=== PATIENT | female | born 1990 | race Caucasian/White ===

== ENCOUNTER 2017-07-25 09:10 | Emergency (ER) | payer OTHER ==
[~2017-07-25] VITALS: Wt 102.1 kg
[~2017-07-25 09:10] MED LIST: ATARAX,VISTARIL50 MG PO; ATARAX25 MG PO; BACTRIM DS 8001 TA1 PO; CARBIDOPA/LEVOD1 TA1 PO; CHLORDIAZEPOXID25 M1 PO; DIFLUCAN150 MG PO; KEFLEX500 MG PO; MOTRIN800 MG PO; ONCE-DAILY WEL150 MG PO; ONDANSETRON HYDR4 M1 PO; SEPTRA DS 800 M1 TAB PO; SUBOXONE 8 MG-21 TA2 SL; TRAMADOL HCL50 MG PO; ZITHROMAX Z PA250 MG PO
[2017-07-25] MEDS ORDERED: PREDNISONE20 M1 PO (09:43)
== END 2017-07-25 10:49 | disposition home or self-care (01) ==
LOC: ED 09:10
DX: T78.40XA Allergy, unspecified, initial encounter (principal); F14.10 Cocaine abuse, uncomplicated; F11.10 Opioid abuse, uncomplicated; F17.200 Nicotine dependence, unspecified, uncomplicated; X58.XXXA Exposure to other specified factors, initial encounter

== ENCOUNTER 2017-08-24 14:28 | Emergency (ER) | payer OTHER ==
[~2017-08-24] VITALS: Ht 175.2 cm; Wt 90.7 kg
[~2017-08-24 14:28] MED LIST changes: +PREDNISONE20 M1 PO
[2017-08-24 14:49] LABS: BASO % 0.2 % (0.0-1.0); HEMATOCRIT 44.4 % (37.0-47.0); HEMOGLOBIN 15.3 g/dl (12.0-16.0); LYMPH # 2.9 10*3/uL (1.3-4.4); MEAN CELL VOLUME 87.2 fl (81.0-99.0); MEAN CORPUSCULAR HGB 30.1 pg (27.0-31.0); MEAN CORPUSCULAR HGB CONC 34.5 g/dl (33.0-37.0); MEAN PLATELET VOLUME 8.9 fl (9.6-12.3); MONO # 0.4 10*3/uL (0.1-1.0); MONO % 6.2 % (3.0-9.0); NEUT # 3.3 10*3/uL (2.3-7.9); NEUT % 50.1 % (47.0-73.0); PLATELET COUNT AUTOMATED 383 10*3/uL (130-400); RED BLOOD COUNT 5.09 10*6/uL (4.10-5.10); RED CELL DISTRI WIDTH 13.2 % (0-14.5); WHITE BLOOD COUNT 6.6 10*3/uL (4.8-10.8)
[2017-08-24 15:03] LABS: ALBUMIN 3.8 gm/dl (3.1-4.5); ALKALINE PHOSPHATASE 64 U/L (45-117); BUN 6 mg/dl (7-24); CHLORIDE 105 mmol/L (98-107); CREATININE 1.01 mg/dL (0.55-1.02); POTASSIUM 3.3 mmol/L (3.5-5.1); SGOT/AST 111 IU/L (3-35); SGPT/ALT 121 U/L (12-78); SODIUM 140 mmol/L (136-145); TOTAL PROTEIN 7.7 gm/dL (6.4-8.2)
[2017-08-24 15:06] LABS: B-hCG (QUALITATIVE) NEGATIVE (NEGATIVE)
[2017-08-24 15:10] LABS: ACETAMINOPHEN (TYLENOL) < 2.0 ug/ml (10-30)
[2017-08-24 15:29] LABS: BILIRUBIN NEGATIVE (NEGATIVE); BLOOD NEGATIVE (NEGATIVE); CLARITY SL CLOUDY (CLEAR); COLOR YELLOW (YELLOW); GLUCOSE NEGATIVE (NEGATIVE); KETONE NEGATIVE (NEGATIVE); LEUKO ESTERASE NEGATIVE (NEGATIVE); NITRITE NEGATIVE (NEGATIVE); PH 5.5 (5.0-9.0); SPECIFIC GRAVITY 1.015 (1.005-1.030); UROBILINOGEN 0.2 E.U./dl (0.2-1.0)
[2017-08-24 15:42] LABS: BACTERIA 1+
[2017-08-24 15:44] LABS: URINE AMPHETAMINES > 1000 (1000ng/ml); URINE BARBITURATES < 200 (200ng/ml); URINE BENZODIAZEPINES < 200 (200ng/ml); URINE CANNABINOIDS (THC) > 50 (50ng/ml); URINE COCAINE > 300 (300ng/ml); URINE METHADONE < 300 (300ng/ml); URINE OPIATES < 300 (300ng/ml)
[2017-08-24 15:45] LABS: URINE PHENCYCLIDINE < 25 (25ng/ml)
== END 2017-08-24 17:30 | disposition home or self-care (01) ==
LOC: ED 14:28
PROVIDERS: Emergency Medicine
DX: T40.601A Poisoning by unspecified narcotics, accidental (unintentional), initial encounter (principal); R40.20 Unspecified coma; F19.10 Other psychoactive substance abuse, uncomplicated; F14.10 Cocaine abuse, uncomplicated; F11.10 Opioid abuse, uncomplicated; Y92.9 Unspecified place or not applicable

== ENCOUNTER 2017-09-04 15:06 | Inpatient (IN) | payer OTHER ==
[~2017-09-04] VITALS: Ht 175.2 cm; Wt 99.9 kg
[2017-09-04 16:30] VITALS: BP 156/94
--- NOTE | 2017-09-04 16:30 | NUR ---
A 27, admitted to , under the services of SAIMA Heard DO with a diagnosis of OPIATE AND ALCOHOL WITHDRAWL. Chief complaint is OPIATE WITHDRAWL/ETOH WITHDRAWL. Patient arrived via ambulatory from [place]. Monitor applied. Initial assessment completed. Vital signs taken and recorded. SAIMA HEARD DO notified of admission to the unit. Orders received. See assessment for past medical history, medications and allergies. Patient and/or family oriented to unit. [facility] visitation policy reviewed. Clothing/patient valuable form completed. AMANDA VALLEJO
[2017-09-04 16:42] VITALS: BP 140/98
[2017-09-04] MEDS ORDERED: Synthroid,Lev200 MCG PO (17:04)
--- NOTE | 2017-09-04 17:15 | NUR ---
SPOKE TO DR. ORTEGA ABOUT UPDATED MEDWRECK, AND PT ON FLOOR WELL ORDERS. WILL ALEXEIUE TO MONITOR PT
[2017-09-04 17:17] LABS: BASO % 0.1 % (0.0-1.0); HEMATOCRIT 42.5 % (37.0-47.0); HEMOGLOBIN 14.8 g/dl (12.0-16.0); LYMPH % 42.4 % (27.0-41.0); MEAN CELL VOLUME 85.5 fl (81.0-99.0); MEAN CORPUSCULAR HGB 29.8 pg (27.0-31.0); MEAN CORPUSCULAR HGB CONC 34.8 g/dl (33.0-37.0); MEAN PLATELET VOLUME 8.7 fl (9.6-12.3); MONO # 0.4 10*3/uL (0.1-1.0); MONO % 5.7 % (3.0-9.0); NEUT # 3.6 10*3/uL (2.3-7.9); NEUT % 51.7 % (47.0-73.0); PLATELET COUNT AUTOMATED 296 10*3/uL (130-400); RED BLOOD COUNT 4.97 10*6/uL (4.10-5.10)
--- NOTE | 2017-09-04 17:17 | NUR ---
Time: A 25 year old F admitted to under services of SAIMA OSEI DO. Pt. arrived via wheel chair from [place]. Chief complaint: OPIATE AND ALCHOHOLE WITHRAWL. RICARDO EARLY
[2017-09-04 17:25] LABS: BILIRUBIN 1+ (NEGATIVE); BLOOD NEGATIVE (NEGATIVE); CLARITY SL CLOUDY (CLEAR); COLOR YELLOW (YELLOW); GLUCOSE NEGATIVE (NEGATIVE); KETONE NEGATIVE (NEGATIVE); LEUKO ESTERASE NEGATIVE (NEGATIVE); NITRITE NEGATIVE (NEGATIVE); PH 5.5 (5.0-9.0); SPECIFIC GRAVITY >= 1.030 (1.005-1.030); UROBILINOGEN 0.2 E.U./dl (0.2-1.0)
[2017-09-04 17:32] LABS: BACTERIA 2+
[2017-09-04 17:32] LABS: ALBUMIN 3.6 gm/dl (3.1-4.5); ALKALINE PHOSPHATASE 58 U/L (45-117); BUN 9 mg/dl (7-24); CHLORIDE 105 mmol/L (98-107); CREATININE 1.07 mg/dL (0.55-1.02); LIPASE 157 U/L (73-393); POTASSIUM 3.8 mmol/L (3.5-5.1); SGOT/AST 108 IU/L (3-35); SGPT/ALT 118 U/L (12-78); SODIUM 140 mmol/L (136-145); TOTAL PROTEIN 7.1 gm/dL (6.4-8.2)
[2017-09-04 17:33] LABS: URINE AMPHETAMINES < 1000 (1000ng/ml); URINE BARBITURATES < 200 (200ng/ml); URINE BENZODIAZEPINES < 200 (200ng/ml); URINE CANNABINOIDS (THC) > 50 (50ng/ml); URINE COCAINE < 300 (300ng/ml); URINE METHADONE < 300 (300ng/ml); URINE OPIATES < 300 (300ng/ml)
[2017-09-04 17:35] LABS: BETA-HCG, QUANT < 1.0 mIU/mL (1-3); ETHYL ALCOHOL < 3.0 mg/dl (<3)
[2017-09-04 17:35] LABS: URINE PHENCYCLIDINE < 25 (25ng/ml)
[2017-09-04] MEDS ORDERED: FISH OIL OMEGA1 EAC3 PO (18:39)
--- NOTE | 2017-09-04 19:30 | NUR ---
PT. IS RESTING IN BED COMFORTABLY AT THIS TIME, WATCHING TV. NO DISTRESS IS NOTED, CALL LIGHT IN REACH. SEE SHIFT ASSESSMENT.
[2017-09-04 20:00] VITALS: BP 128/78
[2017-09-05] VITALS: BP 117/69
[2017-09-05 04:00] VITALS: BP 108/72
--- NOTE | 2017-09-05 05:15 | NUR ---
24 HR chart check completed.
[2017-09-05 08:00] VITALS: BP 117/71
[2017-09-05 09:39] LABS: ALBUMIN 3.6 gm/dl (3.1-4.5); BUN 9 mg/dl (7-24); CHLORIDE 103 mmol/L (98-107); POTASSIUM 4.2 mmol/L (3.5-5.1); SGPT/ALT 111 U/L (12-78); SODIUM 138 mmol/L (136-145)
[2017-09-05 09:42] LABS: ALKALINE PHOSPHATASE 66 U/L (45-117); CREATININE 0.91 mg/dL (0.55-1.02); SGOT/AST 86 IU/L (3-35); TOTAL PROTEIN 6.9 gm/dL (6.4-8.2)
--- NOTE | 2017-09-05 09:45 | NUR ---
Patient reports the following symptoms of withdrawal: body aches, leg pain, and anxiety. Patient given scheduled/PRN medication to control withdrawal symptoms. Close observation will be maintained.
--- NOTE | 2017-09-05 10:45 | NUR ---
Patient resting. Responding to scheduled medications with fewer complaints of pain and anxiety.
[2017-09-05 12:00] VITALS: BP 135/69
--- NOTE | 2017-09-05 12:40 | NUR ---
PATIENT AWAKE AND VISITING WITH FRIENDS. ROUTINE MEDICATIONS TOLERATRED. NO PT COMPLAINTS AT THIS TIME.
[2017-09-05 16:00] VITALS: BP 139/89
--- NOTE | 2017-09-05 16:13 | NUR ---
D/C PLANNING: PATIENT IS GOING TO TEEN [facility]ALLENGE UPON DISCHARGE. LOREE ABERNATHY B.A. HEEL DIPPER
--- NOTE | 2017-09-05 17:30 | NUR ---
ADMINISTERED NEW NICOTINE PATCH. CURRENT PATCH GOT WET IN THE SHOWER AND WILL NOT ADHERE TO PATIENTS SKIN.
[2017-09-05 20:00] VITALS: BP 136/89
--- NOTE | 2017-09-05 20:32 | NUR ---
PATIENT REQUESTED VISTARIL FOR ANXIETY AND MOTRIN FOR A HEADACHE. MEDICATION GIVEN PER ORDER.
--- NOTE | 2017-09-05 21:30 | NUR ---
PATIENT STATED HER HEADACHE WAS BETTER AND THE ANXIETY HAD EASED. PATIENT UP IN ROOM FIXING HER HAIR.
--- NOTE | 2017-09-05 21:45 | NUR ---
Time: 2144 A 85 year old MALE admitted to under services of SAIMA OSEI DO. Pt. arrived via CART WITH RN from EMERGENCY ROOM [place]. Chief complaint:UTI, ELEVATED BLOOD PRESSURE . DELMA WHYTE
[2017-09-06] VITALS: BP 151/74
--- NOTE | 2017-09-06 00:12 | NUR ---
PATIENT UPSET IN ROOM, HAD A TELEPHONE CALL FROM SOMEON THAT HAD UPSET HER.
--- NOTE | 2017-09-06 00:20 | NUR ---
PATIENT REQUESTED VISTARIL FOR ANXIETY, STATED HER HEAD WOULD NOT STOP THINKING.
--- NOTE | 2017-09-06 01:06 | NUR ---
24 HR chart check completed.
--- NOTE | 2017-09-06 07:30 | NUR ---
PATIENT AWAKE. ASSESSMENT COMPLETE. PT C/O ANXIETY AND RESTLESNESS. ADMINISTERED PO VIATARIL. WILL MONITOR FOR EFFECTIVENESS.
[2017-09-06 08:00] VITALS: BP 142/90
--- NOTE | 2017-09-06 08:25 | NUR ---
Patient resting quietly with no c/o discomfort. Respirations easy and regular. Vital signs stable. No overt distress. ROSE MARIE MANNING
--- NOTE | 2017-09-06 09:31 | NUR ---
PER JORGE KNUTSON GENERAL MACHINE OPERATOR PATIENTS TB TEST READS NEGATIVE. SHE STATES SHE WILL CHART RESULTS.
[2017-09-06 12:00] VITALS: BP 132/84
--- NOTE | 2017-09-06 13:45 | NUR ---
ADMINISTERED PO VISTARIL PER PT REQUEST FOR ANXIETY. WILL MONITOR FOR ANXIETY
--- NOTE | 2017-09-06 14:35 | NUR ---
Patient resting. Responding to PRN medications with fewer complaints of anxiety.
[2017-09-06 16:00] VITALS: BP 142/88
[2017-09-06 20:00] VITALS: BP 130/81
--- NOTE | 2017-09-06 20:41 | NUR ---
PRN VISTARIL AND TYLENOL GIVEN FOR PT COMPLAINTS OF ANXIOUS AND GENERALIZED PAIN. CALL LIGHT WITHIN REACH, WILL MONITOR
--- NOTE | 2017-09-06 21:15 | NUR ---
DR. VANCE CALLED AT THIS TIME FOR PATIENT NICODERM PATCH. PATCH FELL OFF IN THE SHOWER, DR. VANCE STATED IT WAS OK TO APPLY A NEW ONE
--- NOTE | 2017-09-06 21:18 | NUR ---
PRN TRAZADONE GIVEN FOR PT COMPLAINTS OF SLEEPLESSNESS. CALL LIGHT WITHIN REACH, WILL MONITOR
--- NOTE | 2017-09-06 21:30 | NUR ---
PRN VISTARIL AND TYLENOL EFFECTIVE, PER PT
--- NOTE | 2017-09-06 22:15 | NUR ---
PRN TRAZADONE EFFECTIVE PER PT, STATES SHE'S READY TO SLEEP
[2017-09-07] VITALS: BP 111/68
[2017-09-07 07:09] LABS: HEMATOCRIT 43.6 % (37.0-47.0); HEMOGLOBIN 14.8 g/dl (12.0-16.0); LYMPH # 2.9 10*3/uL (1.3-4.4); LYMPH % 52.9 % (27.0-41.0); MEAN CELL VOLUME 87.9 fl (81.0-99.0); MEAN CORPUSCULAR HGB 29.8 pg (27.0-31.0); MEAN CORPUSCULAR HGB CONC 33.9 g/dl (33.0-37.0); MEAN PLATELET VOLUME 9.3 fl (9.6-12.3); MONO # 0.4 10*3/uL (0.1-1.0); MONO % 7.9 % (3.0-9.0); NEUT # 2.1 10*3/uL (2.3-7.9); PLATELET COUNT AUTOMATED 275 10*3/uL (130-400); RED BLOOD COUNT 4.96 10*6/uL (4.10-5.10); RED CELL DISTRI WIDTH 13.2 % (0-14.5); WHITE BLOOD COUNT 5.4 10*3/uL (4.8-10.8)
[2017-09-07 08:00] VITALS: BP 132/86
[2017-09-07 12:00] VITALS: BP 130/84
[2017-09-07] MEDS ORDERED: Synthroid,Lev200 MCG PO (14:37)
[2017-09-07 16:00] VITALS: BP 116/58
[2017-09-08] VITALS: BP 118/60
--- NOTE | 2017-09-08 04:00 | NUR ---
Patient sleeping. Respirations easy and regular. Vital signs stable. No overt distress. RAMÍREZ LOPEZ
[2017-09-08 06:37] LABS: CREATININE 0.92 mg/dL (0.55-1.02)
--- NOTE | 2017-09-08 08:00 | NUR ---
VISTARIL GIVEN FOR C/O ANXIEY, MOTRIN GIVEN FOR C/O HEADACHE, NICOTINE PATCH PLACED. WILL MONITOR.
--- NOTE | 2017-09-08 09:08 | NUR ---
[facility] Discharge instructions reviewed with patient/family. Patient receptive and verbalizes understanding. Follow-up care arranged. Written instructions given to patient/family. LUCILLE MEYERS
== END 2017-09-08 09:08 | DRG 897 ==
LOC: 4E 15:06
PROVIDERS: Internal Medicine; ADMIT Internal Medicine
DX: F11.23 Opioid dependence with withdrawal (principal); F10.230 Alcohol dependence with withdrawal, uncomplicated; E03.9 Hypothyroidism, unspecified; F19.10 Other psychoactive substance abuse, uncomplicated; R74.0 Nonspecific elevation of levels of transaminase and lactic acid dehydrogenase [LDH]; F14.10 Cocaine abuse, uncomplicated; F15.10 Other stimulant abuse, uncomplicated; F41.9 Anxiety disorder, unspecified; F32.9 Major depressive disorder, single episode, unspecified; F13.10 Sedative, hypnotic or anxiolytic abuse, uncomplicated; F90.9 Attention-deficit hyperactivity disorder, unspecified type; M54.5 Low back pain; G89.29 Other chronic pain; Z72.0 Tobacco use; Z87.440 Personal history of urinary (tract) infections; Z83.3 Family history of diabetes mellitus; Z82.49 Family history of ischemic heart disease and other diseases of the circulatory system; Z84.89 Family history of other specified conditions; Z79.899 Other long term (current) drug therapy